=== PATIENT | male | born 1980 | race African-American/Black ===

== ENCOUNTER 2019-06-19 17:30 | Emergency (ER) | payer MEDICAID ==
[~2019-06-19] VITALS: Ht 170.2 cm; Wt 91.0 kg
[2019-06-19] MEDS ORDERED: TETANUS, DIPHTHERIA, PERTUSSIS VAC/PF 0.5ML (>7YR OLD) IM ONE (18:45)
[2019-06-19] MEDS ORDERED: ACETAMINOPHEN 325MG TABLET PO ONE (18:45)
[2019-06-19] MEDS ORDERED: BACITRACIN ZINC OINT UDPKT TOP ONE (18:45)
[2019-06-19] MEDS ORDERED: IBUPROFEN 600MG TABLET PO ONE (20:00)
[2019-06-19 20:09] VITALS: BP 120/75
== END 2019-06-19 20:00 | disposition home or self-care (01) ==
LOC: ER 17:30
DX: S00.511A Abrasion of lip, initial encounter (principal); F84.0 Autistic disorder; W19.XXXA Unspecified fall, initial encounter; Y93.89 Activity, other specified; Y92.89 Other specified places as the place of occurrence of the external cause; Y99.8 Other external cause status
CPT/HCPCS: 90471; 90715; 99284